=== PATIENT | male | born 1985 | race Caucasian/White ===

== ENCOUNTER 2017-10-29 13:20 | Emergency (ER) | payer OTHER, SELFPAY ==
[2017-10-29] MEDS: AUGMENTIN 875 MG TAB PO ×2 (13:58)
== END 2017-10-29 14:00 | disposition home or self-care (01) ==
LOC: M ED 13:20
DX: J02.8 Acute pharyngitis due to other specified organisms (principal); F43.10 Post-traumatic stress disorder, unspecified; F17.200 Nicotine dependence, unspecified, uncomplicated
CPT/HCPCS: 87880

== ENCOUNTER 2018-03-24 21:53 | Emergency (ER) | payer OTHER ==
[2018-03-24] MEDS: ALBUTEROL 90 MCG/ACT 8GM HFA INHALER INH (23:20)
== END 2018-03-24 23:48 | disposition home or self-care (01) ==
LOC: M ED 21:53
DX: J45.909 Unspecified asthma, uncomplicated (principal); F17.200 Nicotine dependence, unspecified, uncomplicated
CPT/HCPCS: 71046

== ENCOUNTER 2018-03-30 23:05 | Emergency (ER) | payer OTHER ==
[2018-03-30] MEDS: predniSONE 20 MG TAB PO (23:45)
== END 2018-03-31 00:21 | disposition home or self-care (01) ==
LOC: M ED 23:05
DX: J20.9 Acute bronchitis, unspecified (principal)
CPT/HCPCS: 99282

== ENCOUNTER 2018-05-18 15:37 | Emergency (ER) | payer OTHER, SELFPAY ==
[~2018-05-18] VITALS: Ht 170.2 cm; Wt 65.9 kg
[~2018-05-18 15:37] MED LIST: AMOX875T2 PO; AUGM875T28 PO; FLON1SPR NARES; MUCI600T37 PO; NETI1KIT; PRED20TA PO; PROAAER10 INH; PSEU30SY3 PO
[2018-05-18 15:39] VITALS: BP 139/94
[2018-05-18] MEDS ORDERED: PENI500T PO (17:30)
[2018-05-18] MEDS ORDERED: NORCOTAB PO (17:30)
== END 2018-05-18 17:37 | disposition home or self-care (01) ==
LOC: M ED 15:37
DX: K08.89 Other specified disorders of teeth and supporting structures (principal); J45.909 Unspecified asthma, uncomplicated; Z72.0 Tobacco use

== ENCOUNTER 2022-12-03 14:32 | Emergency (ER) | payer SELFPAY ==
[~2022-12-03] VITALS: Ht 167.6 cm; Wt 64.0 kg
[~2022-12-03 14:32] MED LIST changes: +HYDR-3715 PO; +PENI500T PO
[2022-12-03 14:33] VITALS: BP 154/87
== END 2022-12-03 15:59 | disposition left against medical advice (07) ==
LOC: M ED 14:32
DX: Z53.21 Procedure and treatment not carried out due to patient leaving prior to being seen by health care provider (principal)

== ENCOUNTER 2022-12-05 12:07 | Emergency (ER) | payer OTHER, SELFPAY ==
[~2022-12-05] VITALS: Ht 167.6 cm; Wt 64.3 kg
[2022-12-05 12:08] VITALS: BP 163/87
[2022-12-05] MEDS ORDERED: BUPR8SUB SL (12:31)
[2022-12-05] MEDS ORDERED: PANT40TA29 PO (12:32)
== END 2022-12-05 16:07 | disposition home or self-care (01) ==
LOC: M ED 12:07
DX: K41.90 Unilateral femoral hernia, without obstruction or gangrene, not specified as recurrent (principal); Z79.899 Other long term (current) drug therapy

== ENCOUNTER → 2023-02-18 | Outpatient (CLI) | payer OTHER ==
[~2023-02-18] MED LIST changes: +BUPR8SUB SL; +PANT40TA29 PO
== END ==
LOC: M EKG 09:39
PROVIDERS: ATTEND Surgery
DX: Z01.818 Encounter for other preprocedural examination (principal); K41.90 Unilateral femoral hernia, without obstruction or gangrene, not specified as recurrent

== ENCOUNTER 2023-02-19 10:02 | Day surgery (SDC) | payer OTHER ==
[~2023-02-19] VITALS: Ht 167.6 cm; Wt 64.0 kg
[~2023-02-19 10:02] MED LIST changes: +CelecoXIB 400 MG CAP PO ONE; +ceFAZolin SOD 2 GM in IV 1 EA IV ONE
[2023-02-19] MEDS ORDERED: propofoL 200 MG/20 ML VIAL As Ordered ONE ×2 (10:32→10:37)
[2023-02-19] MEDS ORDERED: ROCURONIUM BROMIDE 50MG/5ML VIAL As Ordered ONE ×2 (10:32→13:02)
[2023-02-19] MEDS ORDERED: LIDOCAINE 2% 100MG/5ML SDV (FOR ANES.) As Ordered ONE (10:32)
[2023-02-19] MEDS ORDERED: MIDAZOLAM INJ 2MG/2ML VIAL As Ordered ONE (10:33)
[2023-02-19] MEDS ORDERED: fentaNYL 250 MCG/5 ML INJECTION As Ordered ONE (10:33)
[2023-02-19] MEDS ORDERED: LR 1,000 ML IV SCH ×2 (10:45→14:00)
[2023-02-19] MEDS ORDERED: LABETALOL 100MG/20ML VIAL As Ordered ONE (11:29)
[2023-02-19] MEDS ORDERED: ACETAMINOPHEN 1000MG 100ML IV BAG As Ordered ONE ×2 (12:06→12:40)
[2023-02-19] MEDS ORDERED: KETAMINE HCL 200MG/20ML VIAL As Ordered ONE (12:06)
[2023-02-19] MEDS ORDERED: dexmedeTOMIDine (4MCG/ML)200MCG/50ML BTL (PRECEDEX) As Ordered ONE (12:07)
[2023-02-19] MEDS ORDERED: LIDOCAINE 1% SDV 30ML VIAL As Ordered ONE (12:12)
[2023-02-19] MEDS ORDERED: ONDANSETRON 4MG 2ML VIAL As Ordered ONE (13:04)
[2023-02-19] MEDS ORDERED: KETOROLAC 60MG 2ML VIAL As Ordered ONE (13:04)
[2023-02-19] MEDS ORDERED: SUGAMMADEX SODIUM 500 MG/5 ML VIAL (BRIDION) As Ordered ONE (13:04)
[2023-02-19] MEDS ORDERED: ONDANSETRON 4MG 2ML VIAL IV PRN (14:00)
[2023-02-19] MEDS: fentaNYL 100 MCG/2 ML INJECTION IV PRN ×4 (14:15→14:57)
[2023-02-19] MEDS: oxyCODONE 5MG TAB PO PRN ×2 (15:01→15:40)
[2023-02-19 16:43] VITALS: BP 133/85; TEMP 98.4; O2SAT 98
[2023-02-19] MEDS ORDERED: KETOROLAC 30 MG/ML 1ML VIAL IV SCH (20:00)
== END 2023-02-19 16:45 | disposition home or self-care (01) ==
LOC: M SDC 10:02
PROVIDERS: ATTEND Surgery
DX: K41.30 Unilateral femoral hernia, with obstruction, without gangrene, not specified as recurrent (principal); F17.210 Nicotine dependence, cigarettes, uncomplicated; K21.9 Gastro-esophageal reflux disease without esophagitis; Z79.899 Other long term (current) drug therapy
CPT/HCPCS: 49594; C1781; J0131; J0665; J0690; J1100; J1885; J2250; J2405; J3010